=== PATIENT | male | born 1985 | race Caucasian/White ===

== ENCOUNTER 2022-03-24 12:22 | Emergency (ER) | payer OTHER, SELFPAY ==
--- NOTE | 2022-03-24 12:31 | ED.URI ---
HPI - URI/Sore Throat General Chief Complaint: Ear Stated Complaint: cold ears Time Seen by Provider: 03/24/22 12:31 Source: patient and RN notes reviewed History of Present Illness HPI Narrative: Patient is a 36-year-old male who presents to urgent care with complaints of bilateral ear pain and sinus drainage. Patient states he had the flu last week and all symptoms resolved with the exception of ear drainage this morning. Patient has been taking Coricidin [id number]. Denies any recent fevers. No other acute complaints. No acute distress noted. Patient aware of the plan of care. Some parts of this dictation were generated by voice recognition software and may contain typographical and/or grammatical inaccuracies. Related Data Allergies Allergy/AdvReac Type Severity Reaction Status Date / Time diphenhydramine Allergy Severe SEVERE Verified 03/24/22 12:37 SWELLING, RESP DISTRESS Review of Systems Review of Systems: CONSTITUTIONAL: Denies fever, chills, or sweats. EYES: Denies visual changes, redness, or discharge. ENT: Reports bilateral otalgia and drainage from the right ear with sinus pressure CARDIOVASCULAR: Denies chest pain, palpitations, or edema. RESPIRATORY: Denies cough or dyspnea. GASTROINTESTINAL: Denies abdominal pain, nausea, vomiting, or diarrhea. GENITOURINARY: Denies dysuria or hematuria. SKIN: Denies rash or itching. MUSCULOSKELETAL: Denies back pain, joint pain, or myalgia. NEUROLOGIC: Denies headache, numbness, or weakness. All other systems reviewed are negative, except as documented in HPI. PMFSH Comments At the time of my signature, I reviewed and agree with the nursing past medical, surgical, social, and family history. There is no relevant family history pertinent to the patient complaint. Exam Narrative: GENERAL: This is a well-nourished, well-developed patient, in no apparent distress. HEAD: normocephalic, atraumatic. EYES: PERRL. Sclera clear/white. Vision is grossly intact. EARS: External ears normal, auditory canals clear and without drainage, spontaneous rupture to the right without erythema or edema to the TM. Moderately retracted erythema left TM with moderate effusion. Hearing grossly intact. NOSE: External nose normal with no obvious nasal discharge, nares without redness, no rhinorrhea. THROAT: Mucous membranes moist, posterior pharynx clear. Moderate postnasal drainage NECK: Neck supple, non-tender without lymphadenopathy, masses or thyromegaly. CARDIOVASCULAR: Regular rate and rhythm without murmurs, gallops, or rubs. RESPIRATORY: Clear to auscultation. Breath sounds equal bilaterally. No wheezes, rales, or rhonchi. SKIN: warm, intact with no suspicious lesions or rash, good texture and turgor. NEURO: awake, alert, and oriented to person, place and time. There were no obvious focal neurologic abnormalities. EXTREMITIES: No clubbing, cyanosis, or edema. Course Course Level of Care: Express Care Visit Vital Signs Vital signs: Vital Signs Temperature 96.4 F L 03/24/22 12:33 Pulse Rate 87 03/24/22 12:33 Respiratory Rate 16 03/24/22 12:33 Blood Pressure 142/78 H 03/24/22 12:33 Pulse Oximetry 98 03/24/22 12:33 Oxygen Delivery Room Air 03/24/22 12:33 Temperature 96.4 F L 03/24/22 12:33 Pulse Rate 87 03/24/22 12:33 Respiratory Rate 16 03/24/22 12:33 Blood Pressure 142/78 H 03/24/22 12:33 Pulse Oximetry 98 03/24/22 12:33 Oxygen Delivery Room Air 03/24/22 12:33 reviewed- Patient is informed that they may have pre-hypertension or hypertension based on a blood pressure reading in the department. I recommend the patient call the primary care provider listed on their discharge instructions or a physician of their choice this week to arrange follow-up for further evaluation of possible pre-hypertension or hypertension. MDM - URI/Sore Throat MDM Narrative Medical decision making narrative: advised patient use [employer]
[2022-03-24 12:33] VITALS: BP 142/78; PULSE 87; RESP 16; TEMP 35.8; O2SAT 98
== END 2022-03-24 13:01 | disposition home or self-care (01) ==
PROVIDERS: Emergency Provider Nurse Practitioner Family
DX: H66.92 Otitis media, unspecified, left ear (principal)
CPT/HCPCS: 99213; G0463

== ENCOUNTER 2023-03-27 10:03 | Emergency (ER) | payer OTHER, SELFPAY ==
--- NOTE | ~2023-03-27 | XR_ITS ---
EXAMINATION: XR chest 1V portable 03/27/2023 10:34 INDICATION: Cough with shortness of breath PROCEDURE: 2 view chest COMPARISON: No prior studies for comparison. FINDINGS: The lungs are clear. The cardiomediastinal silhouette is within normal limits. There are no pleural effusions. There is no pneumothorax suspected. IMPRESSION: 1: NO ACUTE CARDIOPULMONARY DISEASE. Reviewed, dictated and finalized at location B. [employer]
[2023-03-27 10:04] VITALS: BP 126/71; PULSE 93; RESP 18; TEMP 36.6; O2SAT 96
--- NOTE | 2023-03-27 10:08 | ED.URI ---
HPI - URI/Sore Throat General Chief Complaint: Upper Respiratory Infection Stated Complaint: URI Time Seen by Provider: 03/27/23 10:07 Source: patient Mode of arrival: ambulatory Limitations: no limitations History of Present Illness HPI Narrative: 37-year-old male a history of hypertension, diabetes mellitus,dust exposure at work had bronchitis 3 weeks ago and was treated with Z-Loi and Medrol Dosepak. He presents to the ER today with 10 day history of -- cough with mucopurulent expectoration -- congestion -- running nose -- sore throat -- bilateral ear pain. no drainage questionable COVID exposure MD elicited complaint: cough, sore throat and nasal congestion Onset (ago): day(s) ( 10 days) Consistency: constant Severity: moderate Description of mucous: yellow and green Able to tolerate fluids by mouth: Yes Exacerbating factors: nothing Relieving factors: nothing Context: sick contacts Associated symptoms: denies other symptoms, nasal congestion, sore throat, cough, shortness of breath and ear pain Related Data Home Medications Medication Instructions Recorded Confirmed dapagliflozin propanediol 10 mg 10 mg PO DAILY 03/27/23 03/27/23 tablet (Farxiga) escitalopram oxalate 20 mg tablet 20 mg PO DAILY 03/27/23 03/27/23 esomeprazole magnesium 40 mg 40 mg PO DAILY 03/27/23 03/27/23 capsule,delayed release fenofibrate 160 mg tablet 160 mg PO DAILY 03/27/23 03/27/23 insulin glargine U-300 conc 300 42 unit subcut DAILY 03/27/23 03/27/23 unit/mL (1.5 mL) subcutaneous pen (Toujeo SoloStar U-300 Insulin) lisinopril 40 mg tablet 40 mg PO DAILY 03/27/23 03/27/23 metformin 1,000 mg tablet 1,000 mg PO BID 03/27/23 03/27/23 rosuvastatin 40 mg tablet 40 mg PO DAILY 03/27/23 03/27/23 Allergies Allergy/AdvReac Type Severity Reaction Status Date / Time diphenhydramine Allergy Severe SEVERE Verified 03/27/23 10:22 SWELLING, RESP DISTRESS Review of Systems Review of Systems: All systems reviewed & are unremarkable except as noted in HPI and below Constitutional: Constitutional: Reports as per HPI and Reports no additional constitutional complaints Eyes: Eyes: Reports as per HPI and Reports no additional eye complaints ENT: Reports system reviewed and no additional complaints, except as documented, Reports as per HPI, Reports nasal congestion and Reports sore throat Cardiovascular: Cardiovascular: Reports as per HPI and Reports no additional cardiovascular complaints Respiratory: Respiratory: Reports as per HPI, Reports no additional respiratory complaints and Reports dyspnea Gastrointestinal: Gastrointestinal: Reports as per HPI and Reports no additional gastrointestinal complaints Genitourinary: Genitourinary: Reports no additional male genitourinary complaints Musculoskeletal: Musculoskeletal: Reports no additional musculoskeletal complaints and Reports as per HPI Integumentary/Breasts: Skin/Breast: Reports system reviewed and no additional complaints, except as docu and Reports as per HPI Neurologic: Reports system reviewed and no additional complaints, except as documented and Reports as per HPI Psychiatric: Psychiatric: Reports no additional psychiatric complaints and Reports as per HPI Endocrine: Endocrine: Reports no additional endocrine complaints and Reports as per HPI Hematologic/Lymphatic: Hematologic/Lymphatic: Reports no additional hematologic/lymphatic complaints and Reports as per HPI Allergic/Immunologic: Allergic/Immunologic: Reports no additional allergic/immunologic complaints and Reports as per HPI Exam Const: General: no acute distress Nutritional Appearance: well nourished Orientation/consciousness: patient oriented x3 Limitations: no limitations HENMT: Head: normal to inspection Ears: external ears normal and TM's normal bilaterally Face/Nose/Sinus: Normal external nose present Face and sinus: normal facial exam Mouth: Yes Normal oral and palatal mucosa present Thro
[2023-03-27 10:13] VITALS: O2SAT 96
[2023-03-27 10:35] LABS: Strep Group A RT-PCR NOT DETECTED (Negative)
[2023-03-27 10:40] LABS: Basophils Absolute Auto 0.07 K/mm3 (0.00-0.10); Basophils Percent Auto 0.4 % (0.0-1.0); Eosinophils Absolute Auto 0.52 K/mm3 (0.02-0.50); Eosinophils Percent Auto 2.9 % (1.0-6.0); Hematocrit 42.7 % (40.0-54.0); Immature Granulocyte Absolute 0.15 K/mm3 (0.00-0.00); Immature Granulocyte Percent A 0.8 % (0.0-0.0); Lymphocytes Absolute Auto 2.83 K/mm3 (1.10-4.50); Lymphocytes Percent Auto 15.7 % (18.0-42.0); Mean Corpuscular HGB Conc 32.8 g/dL (32.0-36.0); Mean Corpuscular Hemoglobin 27.1 pg (27.0-31.0); Mean Corpuscular Volume 82.8 fL (78.0-102.0); Mean Platelet Volume 10.6 fl (8.7-11.0); Monocytes Absolute Auto 1.04 K/mm3 (0.10-0.90); Monocytes Percent Auto 5.8 % (2.0-11.0); Neutrophils Absolute Auto 13.4 K/mm3 (1.7-7.2); Neutrophils Percent Auto 74.4 % (50.0-70.0); Platelet Count Result 387 K/mm3 (150-420); Red Blood Count 5.16 M/mm3 (4.70-6.10); Red Cell Distribution Width 13.3 % (11.6-14.4)
[2023-03-27 10:46] LABS: SARS-CoV-2 RNA PCR Negative (Negative)
[2023-03-27 10:50] LABS: Influenza A QL RT-PCR Negative (Negative); Influenza B QL RT-PCR Negative (Negative); RSV RNA, RT-PCR Negative (Negative)
[2023-03-27 10:59] LABS: Alanine Aminotransferase 25 U/L (16-63); Albumin Level 3.7 g/dL (3.4-5.0); Alkaline Phosphatase 69 U/L (46-116); Anion Gap 8 mmol/L (8-16); Aspartate Amino Transferase 13 U/L (15-37); Bilirubin,Total 0.4 mg/dL (0.00-1.00); Blood Urea Nitrogen 14 mg/dL (7-18); Calcium 9.1 mg/dL (8.5-10.1); Carbon Dioxide 30 mmol/L (21-32); Chloride 97 mmol/L (98-108); Estimated Glomerular Filt Rate > 60; Glucose 263 mg/dL (70-99); Osmolality Calculated 289 mOsm/kg (285-295); Potassium 3.9 mmol/L (3.5-5.1); Sodium 135 mmol/L (136-145); Total Protein 7.5 g/dL (6.4-8.2); Troponin I 7.2 ng/L (0.00-60.4)
[2023-03-27 11:07] LABS: Lactic Acid Reflex 2.4 mmol/L (0.4-2.0)
[2023-03-27 11:31] VITALS: BP 128/70; PULSE 84; RESP 18; TEMP 36.6; O2SAT 98
[2023-03-27 13:38] LABS: Reflex Lactic Acid Yes or No Add Lactic
== END 2023-03-27 11:37 | disposition home or self-care (01) ==
PROVIDERS: Emergency Provider Internal Medicine Critical Care Medicine
DX: J40 Bronchitis, not specified as acute or chronic (principal); J06.9 Acute upper respiratory infection, unspecified; E11.65 Type 2 diabetes mellitus with hyperglycemia; I10 Essential (primary) hypertension; Z79.4 Long term (current) use of insulin; Z79.899 Other long term (current) drug therapy; Z20.822 Contact with and (suspected) exposure to COVID-19
CPT/HCPCS: 36415; 71045; 80053; 83605; 84484; 85025; 87637; 87651; 99284